=== PATIENT | female | born 1985 | race Caucasian/White ===

== ENCOUNTER 2016-04-29 06:23 | Emergency (ER) | payer OTHER ==
[~2016-04-29] VITALS: Ht 175.3 cm; Wt 115.0 kg
[2016-04-29 06:32] VITALS: BP 132/73; PULSE 87; RESP 16; TEMP 98.3; O2SAT 97
[2016-04-29 06:53] LABS: AUTOMATED NEUTROPHIL # 6.3 TH/MM3 (1.8-7.7); BASOPHIL # 0.1 TH/MM3 (0-0.2); BASOPHIL % 0.6 % (0.0-2.0); EOSINOPHIL # 0.2 TH/MM3 (0-0.4); HEMATOCRIT 42.4 % (35.0-46.0); HEMO FLAGS DIFF FINAL; LYMPH % 33.1 % (9.0-44.0); LYMPHOCYTE # 3.6 TH/MM3 (1.0-4.8); MEAN CELL VOLUME 93.4 FL (80.0-100.0); MEAN CORPUSCULAR HGB CONC 34.3 % (32.0-36.0); MONO % 6.4 % (0.0-8.0); NEUT % 57.9 % (16.0-70.0); PLATELET COUNT 285 TH/MM3 (150-450); RED BLOOD COUNT 4.54 MIL/MM3 (4.00-5.30); RED CELL DISTRIBUTION WIDTH 13.8 % (11.6-17.2); WHITE BLOOD COUNT 10.8 TH/MM3 (4.0-11.0)
[2016-04-29 07:07] LABS: ANION GAP 10 MEQ/L (5-15); AST (GOT) 17 U/L (15-37); BICARBONATE 22.6 MEQ/L (21.0-32.0); BLOOD UREA NITROGEN 12 MG/DL (7-18); CHLORIDE 109 MEQ/L (98-107); GLOMERULAR FILTRATION RATE 93 ML/MIN (>89); POTASSIUM 3.6 MEQ/L (3.5-5.1); SODIUM (NA) 142 MEQ/L (136-145)
[2016-04-29 07:10] LABS: ALKALINE PHOSPHATASE 60 U/L (45-117); ALT (GPT) 25 U/L (10-53); TOTAL BILIRUBIN ADULT 0.2 MG/DL (0.2-1.0)
--- NOTE | 2016-04-29 07:13 | PD ---
HPI Chief Complaint: Psychiatric Symptoms Time Seen by Provider: 07:10 Travel History International Travel<30 days: No Contact w/Intl Traveler<30days: No Traveled to known affect area: No History of Present Illness HPI 30-year-old female with no significant medical history presents to the emergency department revealed a Moore act for psychiatric evaluation. Patient states that her ex-boyfriend were "just talking and she wanted him to shut up." She states that she made a comment that she was going to kill herself. Per report, the patient made Facebook messages about her suicide and plan. Patient does not mention this. Denies any previous psychiatric history. No previous suicide attempts. Smokes marijuana occasionally, half a pack tobacco cigarettes daily, and occasional alcohol use. Denies any chance of . No other symptoms to report. PFSH Past Medical History Medical History: Denies Significant Hx Immunizations Current: Yes Tetanus Vaccination: Unknown Influenza Vaccination: Yes ?: Unknown LMP: 04/29/16 Social History Alcohol Use: Yes (socially) Tobacco Use: Yes Substance Use: Yes (weed) Allergies-Medications (Allergen,Severity, Reaction): Coded Allergies: No Known Allergies (Unverified , 04/29/16) Reported Meds & Prescriptions Reported Meds & Active Scripts Active No Active Prescriptions or Reported Medications Review of Systems Except as stated in HPI: all other systems reviewed are Neg Physical Exam Narrative GENERAL: Well-nourished female patient, sitting in bed in no acute distress SKIN: Warm and dry. HEAD: Atraumatic. Normocephalic. EYES: Pupils equal and round. No scleral icterus. No injection or drainage. ENT: No nasal bleeding or discharge. Mucous membranes pink and moist. NECK: Trachea midline. No JVD. CARDIOVASCULAR: Regular rate and rhythm. No murmur appreciated. RESPIRATORY: No accessory muscle use. Clear to auscultation. Breath sounds equal bilaterally. GASTROINTESTINAL: Abdomen soft, non-tender, nondistended. Hepatic and splenic margins not palpable. MUSCULOSKELETAL: No obvious deformities. No clubbing. No cyanosis. No edema. NEUROLOGICAL: Awake and alert. No obvious cranial nerve deficits. Motor grossly within normal limits. Normal speech. Data Data Last Documented VS Vital Signs Date Time Temp Pulse Resp B/P Pulse Ox O2 Delivery O2 Flow Rate FiO2 04/29/16 06:32 98.3 87 16 132/73 97 Orders Complete Blood Count With Diff (04/29/16 06:37) Comprehensive Metabolic Panel (04/29/16 06:37) Psych Screen (04/29/16 06:37) Drug Screen, Random Urine (04/29/16 06:37) Alcohol (Ethanol) (04/29/16 06:37) Labs Laboratory Tests Test 04/29/16 06:35 White Blood Count 10.8 TH/MM3 Red Blood Count 4.54 MIL/MM3 Hemoglobin 14.5 GM/DL Hematocrit 42.4 % Mean Corpuscular Volume 93.4 FL Mean Corpuscular Hemoglobin 32.0 PG Mean Corpuscular Hemoglobin 34.3 % Concent Red Cell Distribution Width 13.8 % Platelet Count 285 TH/MM3 Mean Platelet Volume 8.7 FL Neutrophils (%) (Auto) 57.9 % Lymphocytes (%) (Auto) 33.1 % Monocytes (%) (Auto) 6.4 % Eosinophils (%) (Auto) 2.0 % Basophils (%) (Auto) 0.6 % Neutrophils # (Auto) 6.3 TH/MM3 Lymphocytes # (Auto) 3.6 TH/MM3 Monocytes # (Auto) 0.7 TH/MM3 Eosinophils # (Auto) 0.2 TH/MM3 Basophils # (Auto) 0.1 TH/MM3 CBC Comment DIFF FINAL Differential Comment Sodium Level 142 MEQ/L Potassium Level 3.6 MEQ/L Chloride Level 109 MEQ/L Carbon Dioxide Level 22.6 MEQ/L Anion Gap 10 MEQ/L Blood Urea Nitrogen 12 MG/DL Creatinine 0.74 MG/DL Estimat Glomerular Filtration 93 ML/MIN Rate Random Glucose 98 MG/DL Calcium Level 8.3 MG/DL Aspartate Amino Transf 17 U/L (AST/SGOT) Albumin 3.6 GM/DL Ethyl Alcohol Level 45 MG/DL [facility] Medical Decision Making Medical Screen Exam Complete: Yes Emergency Medical Condition: Yes Medical Record Reviewed: Yes Differential Diagnosis Mood disorder versus personality disorder versus adjustment reaction disorder Narrative Course 30 year-old female presents to the emergency department for evaluation. Abrasion appears well and without distress. Pinnae no acute lab abnormality, patient is medically cleared to undergo psychiatric screening for further evaluation and disposition. Mental health screening discussed with the patient. Psychiatric screen ordered. Diagnosis Primary Impression: Adjustment reaction Qualified Code: F43.20 - Adjustment disorder, unspecified type Scripts No Active Prescriptions or Reported Meds Condition: Krystyna Stark Apr 29, 2016 07:13
[2016-04-29 07:17] LABS: AMPHETAMINE, URINE NEG (NEG); BARBITURATES, URINE NEG (NEG); COCAINE, URINE NEG (NEG)
[2016-04-29 11:10] VITALS: BP 137/73; PULSE 81; RESP 18; TEMP 98.7; O2SAT 98
[2016-04-29] MEDS ORDERED: ACETAMINOPHEN 500 MG CPLT PO ONE (11:15)
[2016-04-29 14:00] VITALS: BP 134/69; PULSE 75; RESP 18
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
== END 2016-04-29 16:43 | disposition home or self-care (01) ==
LOC: NEPA 06:23 → NEPJ 16:43
DX: F43.20 Adjustment disorder, unspecified (principal); F12.90 Cannabis use, unspecified, uncomplicated
CPT/HCPCS: 80053; 80307; 80320; 85025; 99283